=== PATIENT | male | born 1990 | race Caucasian/White ===

== ENCOUNTER 2025-06-27 08:48 | Emergency (ER) | payer OTHER ==
[~2025-06-27] VITALS: Ht 177.8 cm; Wt 74.8 kg
[2025-06-27 10:08] VITALS: BP 121/71; TEMP 98.2; O2SAT 99
== END 2025-06-27 10:08 | disposition home or self-care (01) ==
LOC: ER 09:06
DX: S00.83XA Contusion of other part of head, initial encounter (principal); W22.8XXA Striking against or struck by other objects, initial encounter; Y93.89 Activity, other specified; Y92.89 Other specified places as the place of occurrence of the external cause; Y99.9 Unspecified external cause status
CPT/HCPCS: 70450-TC; 70486-TC